=== PATIENT | male | born 1955 | race Caucasian/White ===

== ENCOUNTER 2017-04-04 13:56 | Emergency (ER) ==
[2017-04-04 14:12] VITALS: BP 173/94; TEMP 98.1; BMI 23.8
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
== END 2017-04-04 16:08 | disposition home or self-care (01) ==
LOC: ED 13:56
DX: M54.5 Low back pain (principal); V49.9XXA Car occupant (driver) (passenger) injured in unspecified traffic accident, initial encounter; F17.210 Nicotine dependence, cigarettes, uncomplicated
CPT/HCPCS: 99283